=== PATIENT | female | born 1950 | race Caucasian/White ===

== ENCOUNTER 2016-06-01 09:38 | Day surgery (SDC) | payer OTHER, MEDICARE ==
[~2016-06-01 09:38] MED LIST: CALCIUM 500 +1 EAC9 PO; DAILY MULTIPLE1 EAC2; OMEGA 3 PO; SUDAFED30 M2 PO; SYNTHROID50 MC1 PO; VITAMIN D350000 UNI1 PO
[2016-06-01 10:15] LABS: URINE APPEARANCE CLEAR; URINE BILIRUBIN NEGATIVE (NEG); URINE BLOOD NEGATIVE (NEG); URINE COLOR YELLOW; URINE GLUCOSE (UA) NEGATIVE (NEG); URINE KETONE NEGATIVE (NEG); URINE LEUKOCYTE ESTERASE POSITIVE (NEG); URINE NITRITE NEGATIVE (NEG); URINE PROTEIN NEGATIVE (NEG)
[2016-06-01 10:29] LABS: URINE RBC 0 /[HPF] (0-5)
[2016-06-01 10:46] LABS: INR 1.1 INR (0.9-1.1); PROTHROMBIN TIME 12.4 SECONDS (9.0-13.6)
[2016-06-02 05:31] LABS: BASO % 0.2 % (0-2); EOS % 0.1 % (0-7); HCT-HEMATOCRIT 35.8 % (34.0-49.0); HGB-HEMOGLOBIN 11.5 gm/dl (12.0-15.5); IMMATURE GRANULOCYTES ABSOLUTE 0.01 tho/cmm (0-0.03); IMMATURE GRANULOCYTES PERCENT 0.1 % (0-0.3); LYMPH % 7.4 % (20-45); LYMPH ABSOLUTE COUNT 0.7 tho/cmm (0.8-4.5); MCH (MEAN CORPUSCULAR HGB) 29.6 pg (28.0-32.0); MCHC MEAN CORPUSCULAR HGB CONC 32.1 % (32.0-36.0); MEAN PLATELET VOLUME 10.5 cmc (9.4-12.4); MONO % 8.8 % (0-12); MONOCYTE ABSOLUTE COUNT 0.9 tho/cmm (0.0-1.2); NEUTROPHIL ABSOLUTE COUNT 8.1 tho/cmm (1.6-8.0); NEUTROPHIL-AUTOMATED 8.1 tho/cmm (1.6-8.0); NEUTROPHILS % 83.4 % (40-80); PLATELET COUNT 214 tho/cmm (150-450); RED BLOOD COUNT 3.89 mil/cmm (4.00-5.20); RED CELL DISTRIBUTION WIDTH 14.3 % (12.4-16.4); WHITE BLOOD COUNT 9.7 tho/cmm (4.0-10.0)
[2016-06-02 05:42] LABS: ANION GAP 9 mmol/L (0-20); BLOOD UREA NITROGEN 8 mg/dl (6-24); CALCIUM 8.8 mg/dl (8.5-10.5); CARBON DIOXIDE-VENOUS 32 mmol/L (22-32); CHLORIDE 108 mmol/l (96-110); CREATININE 0.67 mg/dl (0.50-1.10); GLUCOSE 143 mg/dL (70-110); POTASSIUM 4.6 mmol/L (3.7-5.1); SODIUM 144 mmol/L (135-145); eGFR VALUE FOR BLACK >90 mL/Min
[2016-06-02 06:38] LABS: URINE BILIRUBIN NEGATIVE (NEG); URINE BLOOD MODERATE (NEG); URINE GLUCOSE (UA) NEGATIVE (NEG); URINE KETONE NEGATIVE (NEG); URINE LEUKOCYTE ESTERASE POSITIVE (NEG); URINE NITRITE NEGATIVE (NEG); URINE PROTEIN NEGATIVE (NEG)
[2016-06-02 06:49] LABS: URINE APPEARANCE CLEAR; URINE COLOR PALE YELLOW
[2016-06-02 07:03] LABS: URINE EPITHELIAL CELLS 0 /[HPF] (0-10); URINE RBC 0 /[HPF] (0-5); URINE WBC 0-2 /[HPF] (0-5)
[2016-06-02] MEDS ORDERED: PERCOCET 5-3251 EACH PO (11:04)
[2016-06-02] MEDS ORDERED: ZOFRAN4 M2 PO (11:05)
[2016-06-02] MEDS ORDERED: DULCOLAX10 MG (11:07)
[2016-06-02] MEDS ORDERED: SURFAK240 M2 PO (11:09)
== END 2016-06-02 14:25 ==
LOC: WSU 09:38 → SHSB 09:39 → ORW 12:00 → PACU 14:01 → OBGE 15:10
PROVIDERS: Obstetrics & Gynecology
PROC: 0UT94ZZ Resection of Uterus, Percutaneous Endoscopic Approach (ICD-10-PCS; principal; 2016-06-01)
PROC: 0UTC4ZZ Resection of Cervix, Percutaneous Endoscopic Approach (ICD-10-PCS; 2016-06-01)
PROC: 0UT24ZZ Resection of Bilateral Ovaries, Percutaneous Endoscopic Approach (ICD-10-PCS; 2016-06-01)
PROC: 0UT74ZZ Resection of Bilateral Fallopian Tubes, Percutaneous Endoscopic Approach (ICD-10-PCS; 2016-06-01)
DX: C54.1 Malignant neoplasm of endometrium (principal); E66.01 Morbid (severe) obesity due to excess calories; E03.9 Hypothyroidism, unspecified; G35 Multiple sclerosis; J30.9 Allergic rhinitis, unspecified; Z98.890 Other specified postprocedural states; Z79.899 Other long term (current) drug therapy
CPT/HCPCS: J0690; J2270; J3480; J7030